=== PATIENT | female | born 1995 | race Caucasian/White ===

== ENCOUNTER 2016-07-17 18:54 | Emergency (ER) | payer OTHER ==
[2016-07-17 21:29] LABS: HEMOGLOBIN 12.1 gm/dl (12.3-15.3); RED BLOOD COUNT 4.14 M/UL (4.00-5.10); WHITE BLOOD COUNT 11.1 K/UL (4.5-11.0)
[2016-07-17 21:55] LABS: BUN/CREATININE RATIO 18 (0-10)
== END 2016-07-18 02:08 | disposition home or self-care (01) ==
LOC: ER1 18:54
PROVIDERS: Family Medicine
DX: O99.89 Other specified diseases and conditions complicating pregnancy, childbirth and the puerperium (principal); R10.2 Pelvic and perineal pain; Z3A.17 17 weeks gestation of pregnancy
CPT/HCPCS: 36415; 76805; 80053; 81001; 85025; 99284

== ENCOUNTER 2016-08-13 15:04 | Emergency (ER) | payer OTHER ==
[2016-08-13 16:02] LABS: HEMOGLOBIN 12.5 gm/dl (12.3-15.3); RED BLOOD COUNT 4.21 M/UL (4.00-5.10); WHITE BLOOD COUNT 11.4 K/UL (4.5-11.0)
[2016-08-13 16:13] LABS: BUN/CREATININE RATIO 15 (0-10)
== END 2016-08-13 19:17 | disposition home or self-care (01) ==
LOC: ER1 15:04
PROVIDERS: Family Medicine
DX: O99.89 Other specified diseases and conditions complicating pregnancy, childbirth and the puerperium (principal); S40.212A Abrasion of left shoulder, initial encounter; V43.52XA Car driver injured in collision with other type car in traffic accident, initial encounter; Z3A.21 21 weeks gestation of pregnancy
CPT/HCPCS: 36415; 76815; 80053; 81001; 83690; 85025; 86900; 86901; 93005; 99284

== ENCOUNTER 2016-09-15 21:06 | Outpatient (CLI) | payer BC, OTHER | END 2016-09-16 00:21 | disposition home or self-care (01) | LOC: GENOP 21:06 | DX: O99.89 Other specified diseases and conditions complicating pregnancy, childbirth and the puerperium (principal); G43.909 Migraine, unspecified, not intractable, without status migrainosus; R20.0 Anesthesia of skin; Z3A.26 26 weeks gestation of pregnancy | CPT/HCPCS: 96361; 96374; 96375; J1200; J2765; J7120 ==